=== PATIENT | male | born 1985 | race African-American/Black ===

== ENCOUNTER 2019-02-11 20:28 | Inpatient (IN) | payer OTHER ==
[~2019-02-11] VITALS: Ht 180.3 cm; Wt 87.1 kg
[2019-02-11 20:32] VITALS: BP 189/116
[2019-02-11 21:00] LABS: ABSOLUTE NEUTROPHILS 5.1 thou/uL (1.4-8.2); BASOPHILS 0.4 % (0.0-2.0); EOSINOPHILS 2.3 % (0.0-3.0); HEMATOCRIT 39.9 % (42.0-52.0); HEMOGLOBIN 12.6 gm/dL (14.0-18.0); LYMPHOCYTES 20.8 % (24.0-44.0); MCH 26.2 pg (26.0-34.0); MCHC 31.6 g/dL (28.0-37.0); MCV 82.9 fL (80.0-100.0); MONOCYTES 7.7 % (1.0-8.0); PLATELET COUNT 276 thou/uL (150-400); POLYS 68.8 % (36.0-66.0); RBC 4.81 mil/uL (4.50-6.00); RDW 14.4 % (10.5-14.5); WBC 7.4 thou/uL (4.0-11.0)
[2019-02-11 21:09] LABS: CALCIUM 9.1 mg/dL (8.5-10.1); POTASSIUM 3.4 mmol/L (3.5-5.1)
[2019-02-11] MEDS ORDERED: ISOSORBIDE DINI30 MG PO (21:19)
[2019-02-11] MEDS ORDERED: HYDRALAZINE 2525 MG PO (21:19)
[2019-02-11 21:20] LABS: ALBUMIN 3.5 g/dL (3.4-5.0); MAGNESIUM 2.1 mg/dL (1.8-2.4); TOTAL BILIRUBIN 0.5 mg/dL (<0.1-1.0); TOTAL PROTEIN 7.5 g/dL (6.4-8.2); TROPONIN-I 0.09 ng/mL (<0.06)
[2019-02-11] MEDS ORDERED: CARVEDILOL25 MG PO (21:20)
[2019-02-11] MEDS ORDERED: FUROSEMIDE 20 M20 MG PO (21:20)
[2019-02-11 22:09] VITALS: BP 144/105
--- NOTE | 2019-02-11 22:22 | NUR ---
ED NURSE CALLED TO GIVE REPORT TO INPATIENT NURSE, WAS TOLD SHE WILL CALL BACK
--- NOTE | 2019-02-11 22:37 | NUR ---
ED NURSE CALLED A SECOND TIME TO GIVE REPORT TO INPATIENT NURSE AND WAS AGAIN TOLD THAT THE NURSE IS NOT AVAILABLE AND WILL HAVE TO CALL BACK
[2019-02-11 23:17] VITALS: BP 155/112
[2019-02-12] VITALS (8 sets, daily range): BP systolic 124–155; BP diastolic 69–109
[2019-02-12 00:15] LABS: AMP/METHAMP Negative (Negative); BARBITURATES Negative (Negative); BENZODIAZEPINES Negative (Negative); COCAINE Negative (Negative); METHADONE Negative (Negative); OPIATES POSITIVE (Negative); PCP Negative (Negative)
--- NOTE | 2019-02-12 03:18 | NUR ---
Admission history and assessments completed. Careplan initiated. Denies chest pain since arrival to floor. IVfluids infusing. Rhythm sinus. Low fall risks, Gait steady, Up adlib.
[2019-02-12 06:00] LABS: ANION GAP 8 mmol/L (7-16); BUN 22 mg/dL (7-18); CALCIUM 8.2 mg/dL (8.5-10.1); CHLORIDE 105 mmol/L (98-107); CHOLESTEROL 156 mg/dL (<200); CO2 25 mmol/L (21-32); CREATININE 1.9 mg/dL (0.7-1.3); GLUCOSE 103 mg/dL (74-106); HDL CHOLESTEROL 45 mg/dL (>40); LDL CHOLESTEROL 98 mg/dL (<100); POTASSIUM 3.6 mmol/L (3.5-5.1); SODIUM 138 mmol/L (136-145); TC:HDL 3.5 Ratio (Not establshd); TRIGLYCERIDE 69 mg/dL (<150); TROPONIN-I 0.13 ng/mL (<0.06); VLDL 14 mg/dL (<40)
[2019-02-12 06:05] LABS: SERUM ASSESSMENT Clear
[2019-02-12] MEDS ORDERED: IMDUR 30 MG TAB30 M1 PO (06:22)
--- NOTE | 2019-02-12 07:00 | NUR ---
Patient reports feeling left sided dull chest ache. Rate 1/looking tense. Treated with nitro per BP parameter. States it caused headache and not chest pain relief. Oxygen 2L/nc. Morphine 4 mg given, complete pain relief.
--- NOTE | 2019-02-12 08:06 | NUR ---
PT STATES CHEST PAIN FROM PREVIOUS SHIFT HAS RESOLVED.
--- NOTE | 2019-02-12 08:51 | EKG ---
[address] [employer] [address] ELECTROCARDIOGRAM REPORT Name: TIFFANIE ZAMBRANO Room #: 349-I ADM IN M.R.#: [id number] Admission: 02/11/19 Attend Phys: Harry Becker MD Discharge: Date of : 85 Report #: [id number] THIS REPORT FOR: //name// [facility] ED Test Date: 2019-02-11 Test Time: 20:36:05 Pat Name: TIFFANIE ZAMBRANO Department: Room: 349 Gender: M Senior Financial Consultant: FERNANDO : 1985 Requested By: Helio Torres Order Number: [id number] MD: Charles Brothers Measurements Intervals [place] Rate: 85 P: 76 MT: 131 QRS: 25 QRSD: 161 T: 207 QT: 369 QTc: 439 Interpretive Statements Sinus rhythm Left atrial enlargement LVH with secondary repolarization abnormality No previous ECG available for comparison Electronically Signed On 02-12-2019 8:51:32 INSULATION BOARD HEAD SAW OPERATOR by Charles Brothers [email or web address] <ELECTRONICALLY SIGNED> By: Charles Brothers MD, [facility] 02/12/19 0851 2036 35 Charles Brothers MD, FACC /EPI
--- NOTE | 2019-02-12 08:59 | EKG ---
[address] [place] [address] ELECTROCARDIOGRAM REPORT Name: TIFFANIE ZAMBRANO Room #: 349-I ADM IN M.R.#: [id number] Admission: 02/11/19 Attend Phys: Harry Becker MD Discharge: Date of : 85 Report #: [id number] THIS REPORT FOR: //name// [facility] Test Date: 2019-02-12 Test Time: 08:55:06 Pat Name: TIFFANIE ZAMBRANO Department: Room: 349 I Gender: M Senior Production Manager: LUCY : 1985 Requested By: Mary Harrell Order Number: [id number] MD: Charles Brothers Measurements Intervals [place] Rate: 76 P: 69 [place]: 129 QRS: 34 QRSD: 113 T: 208 QT: 387 QTc: 436 Interpretive Statements Sinus rhythm LVH with repolarization abnormality Compared to ECG 02/11/2019 20:36:05 No significant change was found Electronically Signed On 02-12-2019 8:59:07 MOTOR EXPRESS CLERK by Charles Brothers [email or web address] <ELECTRONICALLY SIGNED> By: Charles Brothers MD, [facility] 02/12/19 0859 D: [id number] 4 Charles Brothers MD, [facility] /EPI
--- NOTE | 2019-02-12 09:51 | 2DMMODE ---
[facility] [address] [place] [address] 2 D/M-MODE ECHOCARDIOGRAM Name: TIFFANIE ZAMBRANO Room #: 349-I ADM IN [facility].#: [id number] Admission: 02/11/19 Attend Phys: Harry Becker MD Discharge: Date of : 85 Report #: [id number] THIS REPORT FOR: //name// APPROVED REPORT Study performed: 02/12/2019 08:04:39 EXAM: Comprehensive 2D, Doppler, and color-flow Echocardiogram Patient Location: Bedside Room #: 349 Status: routine BSA: 2.05 HR: 72 bpm BP: 141/101 mmHg Rhythm: NSR Other Information Study Quality: Good Indications Congestive Heart Failure Elevated Troponin Chest Pain Hypertension/HDD 2D Dimensions RVDd: 36.52 mm IVSd: 20.00 (7-11mm) LVOT Diam: 22.59 (18-24mm) LVDd: 55.95 mm PWd: 21.48 (7-11mm) Ascending Ao: 29.93 (22-36mm) LVDs: 46.22 (25-40mm) Aortic Root: 31.56 mm IVC: 20.00 mm Volumes Left Atrial Volume (Systole) Single Plane 4CH: 66.20 mL Single Plane 2CH: 116.07 mL LA ESV Index: 48.00 mL/m2 Aortic Valve AoV Peak Sb.: 0.87 m/s AO Peak Gr.: 3.05 mmHg LVOT Max P.76 mmHg LVOT Max V: 0.66 m/s NICKOLAS Vmax: 3.04 cm2 Mitral Valve [facility] [address] [place] [address] 2 D/M-MODE ECHOCARDIOGRAM Name: ZAMBRANOTIFFANIE Room #: 349-I [facility] IN [facility]#: [id number] Admission: 02/11/19 Attend Phys: Harry Becker MD Discharge: Date of : 85 Report #: [id number] E/A Ratio: 4.0 MV Decel. Time: 96.97 ms MV E Max Sb.: 1.19 m/s MV A Sb.: 0.30 m/s MV PHT: 28.12 ms IVRT: 83.04 ms Pulmonary Valve PV Peak Sb.: 0.72 m/s PV Peak Gr.: 2.06 mmHg Pulmonary Vein P Vein S: 0.26 m/s P Vein A: 0.19 m/s P Vein D: 0.52 m/s P Vein A Dur.: 69.2 msec P Vein S/D Ratio: 0.50 Tricuspid Valve TR Peak Sb.: 3.79 m/s RAP Estimate: 10.00 mmHg TR Peak Gr.: 57.37 mmHg PA Pressure: 67.00 mmHg Left Ventricle Left ventricle is borderline dilated. There is global hypokinesis of the left ventricle. Severe concentric left ventricular hypertrophy. Left ventricular ejection fraction is severely decreased. LVEF is 30-35%. Severe diastolic dysfunction Right Ventricle The right ventricle is normal size. The right ventricular systolic function is normal. Atria Left atrium is severely dilated. The right atrium size is normal. Aortic Valve The aortic valve is normal in structure. No aortic regurgitation is present. There is no aortic valvular stenosis. Mitral Valve The mitral valve is normal in structure. Mild to moderate mitral regurgitation. No evidence of mitral valve stenosis. Tricuspid Valve The tricuspid valve is normal in structure. Mild tricuspid regurgitation. PAP is estimated at 65 mmHg. [facility] [address] [place] [address] 2 D/M-MODE ECHOCARDIOGRAM Name: TIFFANIE ZAMBRANO Room #: 349-I ADM IN ..#: [id number] Admission: 02/11/19 Attend Phys: Harry Becker MD Discharge: Date of : 85 Report #: [id number] Pulmonic Valve The pulmonary valve is normal in structure. Mild pulmonic regurgitation. Great Vessels The aortic root is normal in size. IVC is normal in size and collapses <50% with inspiration. Pericardium There is no pericardial effusion. <Conclusion> Left ventricular ejection fraction is severely decreased. Severe concentric left ventricular hypertrophy. LVEF is 30-35%. Severe diastolic dysfunction The aortic valve is normal in structure. No aortic regurgitation or stenosis. The mitral valve is normal in structure. Mild to moderate mitral regurgitation. Mild tricuspid regurgitation. Pulmonary artery pressure estimated at 65 mmHg. There is no pericardial effusion. <ELECTRONICALLY SIGNED> By: Charles Brothers MD, [facility] 02/12/19950 0 0 Charles Brothers MD, FACC /INF
--- NOTE | 2019-02-12 13:21 | NUR ---
ASSESSMENT: CM REVIEWED CHART AND MET WITH PATIENT AT THE BEDSIDE. PT IS ALERT AND ORIENTED X4. PT WAS ADMITTED WITH CHEST PAIN/ELEVATED TROPONIN. PT REPORTS HE LIVES IN A HOUSE WITH HIS MOTHER. PT REPORTS HE IS FULLY INDEPENDENT WITH ADLS AND AMBULATION. PT IS SHOWING PATIENT PAY AND CONFIRMS HE HAS NO INSURANCE. CM ASKED IF PATIENT NEEDED INFORMATION ON CLINICS OR PCP FOLLOW UP IF HE HAD NO INSURANCE AND HE STATED NO HE KNEW OF PLACES TO GO. CM PROVIDED PATIENT WITH [facility] CLINICS IN CASE HE NEEDED IT. PT DENIES HAVING HH IN THE PAST. PT REPORTS HE DOES NOT ANTICIPATE HAVING ANY NEEDS AT DISCHARGE. PT REPORTS HE SHOULD HAVE MONEY TO COVER ANY MEDICATIONS. CM DISCUSSED THAT HUMAN ARC MAY MEET WITH PATIENT. CM WILL CONTINUE TO FOLLOW TO ASSIST NEEDED.
[2019-02-13 00:07] LABS: GLYCOHEMOGLOBIN (HGB A1C) 5.4 % (4.8-5.6)
--- NOTE | 2019-02-13 03:48 | NUR ---
DENIES CHEST PAIN TONIGHT. UP AMBULATING IN THE ROOM. HE IS COOPERATIVE AND FRIENDLY. DENIES QUESTIONS. CAREPLAN REVIEWED.
[2019-02-13 04:29] VITALS: BP 157/114
[2019-02-13 05:31] LABS: HEMOGLOBIN 12.3 gm/dL (14.0-18.0); MCH 26.1 pg (26.0-34.0); MCHC 31.4 g/dL (28.0-37.0); RBC 4.7 mil/uL (4.50-6.00); RDW 14.2 % (10.5-14.5)
[2019-02-13 05:45] LABS: CALCIUM 8.8 mg/dL (8.5-10.1); CREATININE 1.7 mg/dL (0.7-1.3); POTASSIUM 3.5 mmol/L (3.5-5.1)
[2019-02-13 07:20] VITALS: BP 163/110
[2019-02-13 11:02] VITALS: BP 129/60
--- NOTE | 2019-02-13 11:41 | NUR ---
ON-GOING ASSESSMENT: CM REVIEWED CHART. CARDIOLOGY IS TO SEE PATIENT AND HE MAY DISCHARGE TODAY OR TOMORROW. PT SHOULD HAVE NO NEEDS AT DISCHARGE.
[2019-02-13] MEDS ORDERED: NORVASC10 MG PO (13:14)
[2019-02-13] MEDS ORDERED: HYDRALAZINE 2525 MG PO (13:14)
[2019-02-13] MEDS ORDERED: CARVEDILOL25 MG PO (13:14)
[2019-02-13] MEDS ORDERED: IMDUR 30 MG TAB30 M1 PO (13:14)
[2019-02-13] MEDS ORDERED: LASIX 20 MG TAB20 MG PO (13:15)
[2019-02-13] MEDS ORDERED: ASPIR 8181 MG PO (13:15)
[2019-02-13 14:01] VITALS: BP 129/60
[2019-02-13 14:15] VITALS: BP 129/60
--- NOTE | 2019-02-13 14:38 | NUR ---
PT DISCHARGE INFORMATION REVIEWED WITH PT. PIV DISCONTINUED AND TELE DC'D. PT DISCHARGE INSTRUCTIONS, EDUCATION MATERIALS AND RXS SENT WITH PT.
== END 2019-02-13 14:37 | disposition home or self-care (01) | DRG 305 ==
LOC: ER 20:28 → EROBS 22:21 → 3W 23:01
PROVIDERS: Emergency Medicine; Nurse Practitioner Family; ADMIT Hospitalist
DX: I16.0 Hypertensive urgency (principal); N17.9 Acute kidney failure, unspecified; I50.22 Chronic systolic (congestive) heart failure; I10 Essential (primary) hypertension; I51.7 Cardiomegaly; Z82.49 Family history of ischemic heart disease and other diseases of the circulatory system; Z83.3 Family history of diabetes mellitus; Z79.82 Long term (current) use of aspirin; Z79.899 Other long term (current) drug therapy
CPT/HCPCS: 10879